=== PATIENT | female | born 1940 | race Caucasian/White ===

== ENCOUNTER 2024-07-22 09:55 | Emergency (ER) | payer MEDICARE, OTHER ==
[~2024-07-22] VITALS: Ht 172.7 cm; Wt 71.8 kg
[~2024-07-22 09:55] MED LIST: AMIT10TA6 PO; APIX5TAB3 PO; DULO30CA52 PO; LORA-268 PO; RIZA10TA98 PO; ROSU10TA72 PO; TRAM50TA2 PO
[2024-07-22] MEDS ORDERED: furosemide 40mg/4ml inj IV ONE (10:20)
[2024-07-22] MEDS ORDERED: furosemide 10 MG/1 ML 10ml inj IV ONE (10:20)
[2024-07-22 13:51] LABS: BASOPHILS # (AUTO) 0.1 X10'3 (0-0.2); BASOPHILS % (AUTO) 1.1 % (0-1); EOSINOPHILS # (AUTO) 0.2 X10'3 (0-0.9); EOSINOPHILS % (AUTO) 1.7 % (0-6); HEMATOCRIT 41.8 % (35.0-45.0); HEMOGLOBIN 13.6 g/dl (12.0-16.0); LYMPHOCYTES # (AUTO) 3.9 X10'3 (1.1-4.8); LYMPHOCYTES % (AUTO) 40.8 % (21-51); MEAN CORPUSCULAR HEMOGLOBIN 27.5 PG (27.0-31.0); MEAN CORPUSCULAR HGB CONC 32.4 g/dL (33.0-36.5); MEAN CORPUSCULAR VOLUME 84.7 FL (78-98); MEAN PLATELET VOLUME 11.2 FL (7.4-10.4); MONOCYTES # (AUTO) 0.9 X10'3 (0-0.9); NEUTROPHILS # (AUTO) 4.4 X10'3 (1.8-7.7); NEUTROPHILS % (AUTO) 46.4 % (42-75); PLATELET COUNT 261 X10'3 (140-440); RED BLOOD COUNT 4.94 X10'6 (4.20-5.60); WHITE BLOOD COUNT 9.5 X10'3 (4.5-11.0)
[2024-07-22 14:00] LABS: ALANINE AMINOTRANSFERASE 27 U/L (12-78); ALBUMIN 3.4 G/DL (3.4-5.0); ALKALINE PHOSPHATASE 69 IU/L (46-116); ANION GAP 6 (8-16); ASPARTATE AMINO TRANSFERASE 26 U/L (10-37); BILIRUBIN,TOTAL 0.4 MG/DL (0.1-1.0); BLOOD UREA NITROGEN 19 MG/DL (7-18); BUN/CREATININE RATIO 19.4 (10.0-20.0); CALCIUM 8.8 MG/DL (8.5-10.1); CHLORIDE 107 MMOL/L (99-107); CREATININE 0.98 MG/DL (0.40-0.90); GLUCOSE 108 MG/DL (70-104); POTASSIUM 4.1 MMOL/L (3.5-5.1); SODIUM 142 MMOL/L (135-145); TOTAL PROTEIN 6.8 G/DL (6.4-8.2); eCRCL 45 ML/MIN; eGFR 54 ML/MIN
[2024-07-22 14:07] LABS: PRO BRAIN NATRIURETIC PEPTIDE 755 PG/ML (0-450)
[2024-07-22 14:49] VITALS: BP 136/72; PULSE 88; RESP 16; TEMP 97.4; O2SAT 98
[2024-07-22 17:10] LABS: LARGE PLATELETS FEW; PLATELET ESTIMATE NORMAL
== END 2024-07-22 14:52 | disposition home or self-care (01) ==
LOC: ER 09:56
DX: Z00.8 Encounter for other general examination (principal); R42 Dizziness and giddiness; R53.83 Other fatigue; R51.9 Headache, unspecified; E78.00 Pure hypercholesterolemia, unspecified; I48.91 Unspecified atrial fibrillation; Z88.5 Allergy status to narcotic agent; Z88.8 Allergy status to other drugs, medicaments and biological substances; Z90.710 Acquired absence of both cervix and uterus
CPT/HCPCS: 36415; 71045; 80053; 83880; 84484; 85008; 85025; 93005; 99285

== ENCOUNTER 2025-02-28 10:26 | Outpatient (CLI) | payer MEDICARE, OTHER ==
[~2025-02-28 10:26] MED LIST changes: +AMIT10TA13 PO; -AMIT10TA6 PO; +AMOX-580 PO; +FLEC100T35 PO; +LORA-269; +PREG100C PO; +PROP10TA10 PO; -ROSU10TA72 PO; +ROSU10TA98 PO
[2025-02-28 11:21] LABS: MEAN PLATELET VOLUME 11.0 FL (7.4-10.4); RED CELL DISTRIBUTION WIDTH 13.9 % (11.5-14.5)
[2025-02-28 11:27] LABS: APTT 29 SECONDS (22-32); INR 1.1 INR
[2025-02-28 11:36] LABS: CHOL/HDL RATIO 2.5 (0.00-4.99); CREATININE 1.00 MG/DL (0.40-0.90); LDL CHOLESTEROL 101 MG/DL (50-100); TOTAL CARBON DIOXIDE 32.0 MMOL/L (24-32); eGFR 53 ML/MIN
[2025-03-03] MEDS ORDERED: DILT120T3 PO ×2 (10:09)
[2025-03-03] MEDS ORDERED: METH-1026 PO (10:09)
[2025-03-03] MEDS ORDERED: APIX5TAB3 PO (10:09)
== END 2025-02-28 23:59 | disposition home or self-care (01) ==
LOC: LAB 10:26 → EDSTATUS 03-04 14:00
PROVIDERS: ATTEND Student in an Organized Health Care Education/Training Program
DX: Z01.818 Encounter for other preprocedural examination (principal); I48.91 Unspecified atrial fibrillation; I10 Essential (primary) hypertension; E78.5 Hyperlipidemia, unspecified
CPT/HCPCS: 80048; 80061; 85025; 85610; 85730